=== PATIENT | female | born 1970 | race Caucasian/White ===

== ENCOUNTER 2018-01-02 10:06 | Emergency (ER) | payer OTHER ==
[~2018-01-02] VITALS: Ht 165.1 cm; Wt 102.1 kg
[2018-01-02] MEDS ORDERED: SYNTHROID88 MCG (10:41)
[2018-01-02] MEDS ORDERED: DICLOFENAC SODI50 MG PO (16:06)
== END 2018-01-02 17:25 | disposition home or self-care (01) ==
LOC: ER 10:06
DX: S80.01XA Contusion of right knee, initial encounter (principal); W18.39XA Other fall on same level, initial encounter; Y93.89 Activity, other specified; Y92.481 Parking lot as the place of occurrence of the external cause; Y99.8 Other external cause status